=== PATIENT | male | born 1995 | race Caucasian/White ===

== ENCOUNTER 2017-07-04 09:02 | Day surgery (SDC) | payer BC ==
[~2017-07-04 09:02] MED LIST: Lactated Ringers 1,000 ML IV SCH
[2017-07-04] MEDS ORDERED: Midazolam 1 MG/ML 2 ML SDV IV ONE (10:55)
[2017-07-04] MEDS ORDERED: Lidocaine 2% 100 MG/5 ML Syringe IVPUSH ONE (10:55)
[2017-07-04] MEDS ORDERED: Propofol 200 MG/20 ML SDV IV ONE (10:55)
--- NOTE | 2017-07-04 11:26 | PCM.OPNOTE ---
- General Post-Op/Procedure Note Date of Surgery/Procedure: 07/04/17 Operative Procedure(s): egd with bx Findings: gastroduodenitis erosive esophagitis Pre Op Diagnosis: epigastric abd pain Post-Op Diagnosis: gastroduodenitis. erosive esophagitis Anesthesia Technique: ANKUR Primary Surgeon: Kyler Harden Anesthesia Provider: Joseph Beebe Pathology: stomach, duodenum and distal esophagus Complications: None Condition: Good Free Text/Narrative:: see dictation
[2017-07-04 11:56] VITALS: BP 131/58
--- NOTE | 2017-07-04 18:34 | OR ---
DATE OF OPERATION: 07/04/2017 SURGEON: Kyler Harden MD PROCEDURE PERFORMED: Esophagogastroduodenoscopy with cold forceps biopsy. PREOPERATIVE DIAGNOSIS: Epigastric abdominal pain. POSTOPERATIVE DIAGNOSIS: Gastroduodenitis and erosive esophagitis. INDICATIONS FOR PROCEDURE: This is a 21-year-old white male, who is referred with an 8-year history of epigastric discomfort. He was offered and accepted EGD. DESCRIPTION OF OPERATION: After an excellent IV sedation was administered, the bite block was inserted. The flexible endoscope was passed without difficulty down the patient's esophagus into the stomach. The stomach was insufflated. Scope was passed through the pylorus to the second portion of the duodenum and slowly withdrawn. The following findings were noted. Duodenum first portion, mild duodenitis. Biopsies taken. Diffuse gastritis, very mild were noted on examination of the stomach as well as a hiatal hernia. GE junction measured approximately 40 cm, and he had 2 tongues of erosive esophagitis. Gastric biopsies were taken as well as a biopsy of the erosion, and in the process of doing this, the patient when into the laryngospasm, the stomach was deflated, and the scope was removed. There were really no other esophageal abnormalities noted. The patient tolerated the procedure well and was taken to recovery in good condition. /[id number] /GABEL
== END 2017-07-04 12:14 | disposition home or self-care (01) ==
LOC: FB.SDS 09:02
PROVIDERS: ATTEND Surgery
DX: K22.10 Ulcer of esophagus without bleeding (principal); K29.50 Unspecified chronic gastritis without bleeding; K29.60 Other gastritis without bleeding; Z87.891 Personal history of nicotine dependence
CPT/HCPCS: 43239; 88305; 88342; J2250; J2704; J7120

== ENCOUNTER 2018-12-08 18:42 | Emergency (ER) | payer BC ==
[2018-12-08 21:15] VITALS: BP 145/91
--- NOTE | 2018-12-09 06:01 | EDM.PDOC ---
ED HPI GENERAL MEDICAL PROBLEM - General Chief Complaint: Genitourinary Problem Stated Complaint: ABD PAIN Time Seen by Provider: 12/08/18 20:03 Source of Information: Reports: Patient History Limitations: Reports: No Limitations - History of Present Illness INITIAL COMMENTS - FREE TEXT/NARRATIVE: Patient complains of right groin pain 2 days duration. End 2 weeks bilateral testicular pain. No previous TESTES. APPOINTMENT TO SEE HIS DOCTOR ON 12/11 ARM PAIN IS INCREASED SCUFFS CLINIC IN THE ED FOR FURTHER EVALUATION. HISTORY OF CORRECTION DYSFUNCTION, URETHRAL DYSURIA, FREQUENCY URGENCY OR DIFFICULTY PASSING URINE. 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 He denies trauma or falls or motor vehicle accidents. He denies hernia history. Right groin Pain Score (Numeric/FACES): 6 - Related Data Allergies Allergy/AdvReac Type Severity Reaction Status Date / Time No Known Allergies Allergy Verified 12/08/18 19:01 Home Meds: Home Meds Ranitidine [Zantac] 150 mg PO BEDTIME 07/03/17 [History] Past Medical History - Past Health History Medical/Surgical History: Denies Medical/Surgical History Gastrointestinal History: Reports: GERD Social & Family History - Tobacco Use Smoking Status *Q: Light Tobacco Smoker Years of Tobacco use: 2 Packs/Tins Daily: 0.1 - Caffeine Use Caffeine Use: Reports: Soda - Recreational Drug Use Recreational Drug Use: No ED ROS GENERAL - Review of Systems Review Of Systems: ROS reveals no pertinent complaints other than HPI. ED EXAM, GI/ABD - Physical Exam Exam: See Below Text/Narrative:: He is over weight male in mild distress. Is attended by a woman. He apparently is not . Exam Limited By: No Limitations General Appearance: Alert, WD/WN, No Apparent Distress Eyes: Bilateral: Normal Appearance Ears: Normal External Exam, Normal Canal, Hearing Grossly Normal, Normal TMs Nose: Normal Inspection Throat/Mouth: Normal Inspection, Normal Lips, Normal Teeth, Normal Gums, Normal Oropharynx, Normal Voice Head: Normocephalic, Sinus Tenderness Neck: Normal Inspection, Supple, Non-Tender, Full Range of Motion Respiratory/Chest: No Respiratory Distress, Lungs Clear, Normal Breath Sounds, No Accessory Muscle Use Cardiovascular: Normal Peripheral Pulses, Regular Rate, Rhythm, No Edema, No Gallop, No JVD, No Murmur, No Rub GI/Abdominal Exam: Normal Bowel Sounds, Soft, No Distention, No Abnormal Bruit, No Mass, Tender, Other (L tenderness right suprainguinal region. No hernia demonstrated. No impulse palpable pulsatile with trans-scrotal palpation external and internal inguinal ring bilaterally) (Male) Exam: No Hernia Rectal (Males) Exam: Deferred Back Exam: Normal Inspection Extremities: Normal Inspection, Normal Range of Motion, Non-Tender, No Pedal Edema, Normal Capillary Refill Neurological: Alert, Oriented, CN II-XII Intact, Normal Cognition, Normal Gait, Normal Reflexes, No Motor/Sensory Deficits Psychiatric: Normal Affect, Normal Mood Skin Exam: Warm, Dry, Intact, Normal Color, No Rash Lymphatic: No Adenopathy Course - Vital Signs Last Recorded V/S: Last Vital Signs Temp 36.7 C 12/08/18 21:10 Pulse 92 12/08/18 21:10 Resp 18 12/08/18 21:10 BP 145/91 H 12/08/18 21:10 Pulse Ox 98 12/08/18 21:10 - Orders/Labs/Meds Labs: Laboratory Tests 12/08/18 12/08/18 12/08/18 Range/Units 19:13 19:30 19:30 WBC 12.2 H (4.5-12.0) X10-3/uL RBC 5.36 (4.30-5.75) x10(6)uL Hgb 16.4 H (11.5-15.5) g/dL Hct 48.5 (30.0-51.3) % MCV 90.6 (80-96) fL MCH 30.7 (27.7-33.6) pg MCHC 33.9 (32.2-35.4) g/dL RDW 12.1 (11.5-15.5) % Plt Count 296 (125-369) X10(3)uL MPV 9.0 (7.4-10.4) fL Neut % (Auto) 58.2 (46-82) % Lymph % (Auto) 31.7 (13-37) % [place] % (Auto) 7.9 (4-12) % Eos % (Auto) 2 (1.0-5.0) % Baso % (Auto) 0 (0-2) % Neut # (Auto) 7.1 (1.6-8.3) # Lymph # (Auto) 3.9 (0.6-5.0) # [place] # (Auto) 1.0 (0.0-1.3) # Eos # (Auto) 0.2 (0.0-0.8) # Baso # (Auto) 0.0 (0.0-0.2) # C-Reactive Protein 0.7 (0.5-0.9) mg/dL Urine Color Yellow (YELLOW) Urine Appearance Clear (CLEAR) Urine pH 5.0 (5.0-6.5) Ur Specific [place] 1.020 (1.010-1.025) Urine Protein Negative (NEGATIVE) mg/dL Urine Glucose (UA) Normal (NEGATIVE) mg/dL Urine Ketones Negative (NEGATIVE) mg/dL Urine Occult Blood Negative (NEGATIVE) Urine Nitrite Negative (NEGATIVE) Urine Bilirubin Negative (NEGATIVE) Urine Urobilinogen Normal (NEGATIVE) mg/dL Ur Leukocyte Esterase Negative (NEGATIVE) Urine RBC 0-5 (0) Urine WBC 0-5 (0) Ur Squamous Epith Cells Occasional (NS,R,O) Urine Bacteria Rare H (NS) Departure - Departure Time of Disposition: 20:25 (Possible bilateral inguinal strain evident on the exam. No evidence for hernia. Testicular palpation no masses, there is normal character or consistency of the testicles. No epididymal pain. No epididymal enlargement. No edema or scrotum. Gege rugae.) Disposition: Home, Self-Care 01 Condition: Good Clinical Impression: Lower abdominal pain, Obesity (BMI 35.0-39.9 without comorbidity) - Discharge Information *PRESCRIPTION DRUG MONITORING PROGRAM REVIEWED*: Not Applicable *COPY OF PRESCRIPTION DRUG MONITORING REPORT IN PATIENT RIOS: Not Applicable Instructions: Acute Pain, Adult Referrals: Malvin Mccullough MD [Primary Care Provider] - Forms: ED Department Discharge Additional Instructions: The cause for bilateral testicular pains indeterminant. you may have mild orchitis (which is inflammation of the testicles). The cause for this is still indeterminate. Your urinalysis is normal; there is no no suggestion of infection. The plan is to use ibuprofen 600 mg every 6 hours. Would be good to rest, and lay around for 24 hours to diminish any swelling To maximize the anti-inflammatory effect of the ibuprofen and decrease any swelling that might present in your testicles. Follow-up with your doctor in 1 week earlier if worse. Forego intercourse until you're cleared by your doctor. Discuss with provider about ultrasound.
== END 2018-12-08 21:15 | disposition home or self-care (01) ==
LOC: FB.ED 18:42
DX: R10.31 Right lower quadrant pain (principal); E66.9 Obesity, unspecified; F17.210 Nicotine dependence, cigarettes, uncomplicated; K21.9 Gastro-esophageal reflux disease without esophagitis; Z79.899 Other long term (current) drug therapy; Z68.36 Body mass index [BMI] 36.0-36.9, adult
CPT/HCPCS: 36415; 81001; 85025; 86140; 99284